=== PATIENT | male | born 1945 | race Two or more races ===

== ENCOUNTER 2017-03-11 07:04 | Emergency (ER) | payer OTHER, MEDICAID ==
[~2017-03-11] VITALS: Ht 180.3 cm; Wt 88.5 kg
[2017-03-11] MEDS ORDERED: SODIUM CHLORIDE 0.9% 1,000 ML IV ONE ×2 (08:35)
[2017-03-11 08:46] LABS: Basophils # (auto) 0 uL; Basophils % (auto) 0.4 % (0.0-2.0); Eosinophils # (auto) 0.1 uL; Eosinophils % (auto) 0.6 % (0.0-7.0); Hematocrit 42.3 % (41.0-53.0); Hemoglobin 14.4 g/dL (13.5-17.5); Lymphocytes # (auto) 0.7 uL; Lymphocytes % (auto) 7.4 % (10.0-50.0); Mean Corpuscular Volume 97.2 fL (80.0-100.0); Monocytes # (auto) 0.6 uL; Monocytes % (auto) 5.9 % (0.0-12.0); Neutrophils # (auto) 8.1 uL; Neutrophils % (auto) 85.7 % (37.0-80.0); Nucleated Red Blood Cells % 0.1 %; Platelet Count (auto) 222 10^3/uL (140-450); Red Blood Cells 4.36 10^6/uL (4.5-5.90); Red Cell Distribution Width 15.6 % (11.8-14.3); White Blood Cell 9.5 10^3/uL (4.4-10.8)
[2017-03-11 08:56] LABS: Albumin 3.6 g/dL (3.4-5.0); Calcium 9.1 mg/dL (8.5-10.1); Potassium 3.7 mmol/L (3.5-5.1)
[2017-03-11 09:00] LABS: Bilirubin, Total 0.7 mg/dL (0.2-1.0); Total Protein 7.3 g/dL (6.4-8.2)
[2017-03-11] MEDS ORDERED: IOHEXOL 300 MG/ML 100ML BOTTLE IJ ONE (09:29)
[2017-03-11] MEDS ORDERED: PROMETHAZINE HCL 25 MG/ML 1ML IV ONE (10:00)
[2017-03-11] MEDS ORDERED: NALBUPHINE HCL 10 MG/1ml INJECTION IV ONE (10:00)
[2017-03-11 11:16] LABS: Urine Bacteria NONE SEEN /hpf (None Seen); Urine Blood Negative /uL (Negative); Urine Specific Gravity 1.032 (1.001-1.035); Urine WBC <1 /hpf (0 - 3)
[2017-03-11 12:48] VITALS: BP 117/71
== END 2017-03-11 12:49 | disposition home or self-care (01) ==
LOC: ER 07:04
DX: K40.90 Unilateral inguinal hernia, without obstruction or gangrene, not specified as recurrent (principal); K56.7 Ileus, unspecified; M19.90 Unspecified osteoarthritis, unspecified site; I10 Essential (primary) hypertension
CPT/HCPCS: 36415; 74178; 80053; 81001; 83605; 83690; 85025; 87040; 96361; 96374; 96375; 99285; J2300; J2550; J7030; Q9967; 93005

== ENCOUNTER 2020-01-10 20:01 | Inpatient (IN) | payer BC, MEDICAID ==
[~2020-01-10] VITALS: Ht 172.7 cm; Wt 98.9 kg
[2020-01-10 22:38] LABS: Basophils # (auto) 0 10 ^3/uL (0-0.2); Basophils % (auto) 0.2 % (0.0-2.0); Eosinophils # (auto) 0 10 ^3/uL (0-0.8); Hemoglobin 17.1 g/dL (13.5-17.5); Lymphocytes # (auto) 0.3 10 ^3/uL (0.4-5.4); Lymphocytes % (auto) 4.6 % (10.0-50.0); Mean Corpuscular Hemoglobin 33.1 pg (28.0-32.0); Mean Corpuscular Hgb Conc. 34.3 g/dL (32.0-36.0); Mean Corpuscular Volume 96.6 fL (80.0-100.0); Monocytes # (auto) 0.3 10 ^3/uL (0-1.3); Monocytes % (auto) 4.6 % (0.0-12.0); Neutrophils # (auto) 5.5 10 ^3/uL (1.6-8.6); Neutrophils % (auto) 90.6 % (37.0-80.0); Nucleated Red Blood Cells % 0.2 %; Platelet Count (auto) 239 10^3/uL (140-450); Red Blood Cells 5.18 10^6/uL (4.5-5.90); Red Cell Distribution Width 14.5 % (11.8-14.3); White Blood Cell 6.1 10^3/uL (4.4-10.8)
[2020-01-10 22:47] LABS: Albumin 3.1 g/dL (3.4-5.0); Anion Gap 10 (5-15); Blood Urea Nitrogen 11 mg/dL (7-18); Calcium 8.6 mg/dL (8.5-10.1); Carbon Dioxide 20 mmol/L (21-32); Chloride 102 mmol/L (98-107); Glucose 136 mg/dL (74-106); Potassium 4.2 mmol/L (3.5-5.1); Sodium 132 mmol/L (136-145)
[2020-01-10 22:52] LABS: Alanine Aminotransferase 40 U/L (16-61); Alkaline Phosphatase 50 U/L (45-117); Aspartate Aminotransferase 64 U/L (15-37); BUN/Creatinine Ratio 12.9; Bilirubin, Total 0.7 mg/dL (0.2-1.0); GFR African American 113 mL/min; GFR Non-African American 94 mL/min; Total Protein 8.1 g/dL (6.4-8.2)
[2020-01-10] MEDS ORDERED: levoFLOXacin 750MG 150 ML IV ONE (23:15)
[2020-01-10] MEDS ORDERED: methylPREDNISolone SOD SUCC 125 MG/2 ML VL IV ONE (23:15)
[2020-01-11] MEDS ORDERED: HYDROcodone-ACET 10/325MG TAB PO ONE
[2020-01-11] MEDS ORDERED: ACETAMINOPHEN 325 MG TAB PO PRN (01:30)
[2020-01-11] MEDS ORDERED: NITROGLYCERIN 0.4 MG SL TAB SL PRN (01:30)
[2020-01-11] MEDS ORDERED: DEXTROSE (50%) 50ML SYRG IV PRN (01:30)
[2020-01-11] MEDS ORDERED: ALBUTEROL SULF HFA 90MCG INH 200DOSE IN PRN (01:30)
[2020-01-11] MEDS ORDERED: MORPHINE SULFATE 4 MG/ML SYR/VIAL IV PRN (01:30)
[2020-01-11] MEDS ORDERED: HYDROcodone-ACET 5/325MG TAB PO PRN (01:30)
[2020-01-11] MEDS ORDERED: DOCUSATE SOD 100 MG CAP PO PRN (01:30)
[2020-01-11] MEDS ORDERED: MORPHINE SULF INJ 2 MG/ML SYRINGE 1ML IV PRN (01:30)
[2020-01-11] MEDS ORDERED: ONDANSETRON HCL 4 MG/2 ML VIAL IV PRN (01:30)
[2020-01-11] MEDS: SODIUM CHLOR 0.9% PF (SALINE LOCK) 10ML VIAL/SYR IV SCH ×3 (05:59→23:20)
[2020-01-11] MEDS: ACCU-CHEK COMFORT CURVE STRIP VI SCH ×4 (06:55→23:21)
[2020-01-11] MEDS: InsuLIN REG 1unit/0.01ml Soln (100units/ml) SC SCH ×3 (07:03→17:30)
[2020-01-11 07:40] LABS: Basophils # (auto) 0 10 ^3/uL (0-0.2); Basophils % (auto) 0.1 % (0.0-2.0); Eosinophils # (auto) 0 10 ^3/uL (0-0.8); Eosinophils % (auto) 0.1 % (0.0-7.0); Hematocrit 48.5 % (41.0-53.0); Hemoglobin 16.3 g/dL (13.5-17.5); Lymphocytes # (auto) 0.2 10 ^3/uL (0.4-5.4); Lymphocytes % (auto) 4.1 % (10.0-50.0); Mean Corpuscular Hemoglobin 32.7 pg (28.0-32.0); Mean Corpuscular Hgb Conc. 33.6 g/dL (32.0-36.0); Mean Corpuscular Volume 97.5 fL (80.0-100.0); Monocytes # (auto) 0.1 10 ^3/uL (0-1.3); Monocytes % (auto) 2.7 % (0.0-12.0); Neutrophils # (auto) 4.3 10 ^3/uL (1.6-8.6); Nucleated Red Blood Cells % 0.1 %; Platelet Count (auto) 225 10^3/uL (140-450); Red Blood Cells 4.97 10^6/uL (4.5-5.90); Red Cell Distribution Width 14.3 % (11.8-14.3); White Blood Cell 4.7 10^3/uL (4.4-10.8)
[2020-01-11 08:05] LABS: Albumin 2.9 g/dL (3.4-5.0); BUN/Creatinine Ratio 16.3; Calcium 8.1 mg/dL (8.5-10.1); Potassium 4.3 mmol/L (3.5-5.1)
[2020-01-11 08:08] LABS: Bilirubin, Total 0.7 mg/dL (0.2-1.0)
[2020-01-11] MEDS: DexAMETHasone SOD PHOS 10MG/1ML VIAL INJ IV SCH (11:45)
[2020-01-11] MEDS: DOXYCYCLINE 100MG/250ML 250 ML IV SCH ×2 (11:46→23:20)
[2020-01-11] MEDS: MULTIPLE VITAMIN TAB PO SCH (11:47)
[2020-01-11] MEDS: ASCORBIC ACID 500 MG TAB PO SCH ×2 (11:48→23:20)
[2020-01-11] MEDS: FAMOTIDINE 20 MG TAB PO SCH ×2 (11:48→23:20)
[2020-01-11] MEDS: CHOLECALCIFEROL (VITD3) 2,000 UNIT CAP PO SCH (11:49)
[2020-01-11] MEDS: ENOXAPARIN SOD 40 MG/0.4 ML SYRINGE SC SCH (11:50)
[2020-01-11] MEDS: BUDESONIDE (INHALATION) 180 MCG IH IN SCH ×2 (12:15→20:30)
[2020-01-11] MEDS ORDERED: IOHEXOL 350 MG/ML 100ML IJ ONE ×2 (15:50→15:54)
[2020-01-11 19:00] VITALS: BP 144/79
[2020-01-11] MEDS: ALBUTEROL SULF HFA 90MCG INH 200DOSE IN SCH (20:30)
[2020-01-11 22:00] VITALS: BP 144/79
[2020-01-12] MEDS: InsuLIN REG 1unit/0.01ml Soln (100units/ml) SC SCH ×5 (00:08→23:11)
[2020-01-12 05:00] VITALS: BP 123/88
[2020-01-12] MEDS: SODIUM CHLOR 0.9% PF (SALINE LOCK) 10ML VIAL/SYR IV SCH ×3 (06:00→22:49)
[2020-01-12] MEDS: ACCU-CHEK COMFORT CURVE STRIP VI SCH ×4 (06:57→22:50)
[2020-01-12 07:14] LABS: Basophils # (auto) 0 10 ^3/uL (0-0.2); Eosinophils # (auto) 0 10 ^3/uL (0-0.8); Hemoglobin 15.7 g/dL (13.5-17.5); Lymphocytes # (auto) 0.5 10 ^3/uL (0.4-5.4); Lymphocytes % (auto) 3.5 % (10.0-50.0); Mean Corpuscular Hemoglobin 33.2 pg (28.0-32.0); Mean Corpuscular Hgb Conc. 34.8 g/dL (32.0-36.0); Mean Corpuscular Volume 95.4 fL (80.0-100.0); Monocytes # (auto) 0.4 10 ^3/uL (0-1.3); Neutrophils # (auto) 12.3 10 ^3/uL (1.6-8.6); Neutrophils % (auto) 93.5 % (37.0-80.0); Nucleated Red Blood Cells % 0.1 %; Platelet Count (auto) 276 10^3/uL (140-450); Red Blood Cells 4.72 10^6/uL (4.5-5.90); Red Cell Distribution Width 14.7 % (11.8-14.3); White Blood Cell 13.2 10^3/uL (4.4-10.8)
[2020-01-12 07:28] LABS: Potassium 4.4 mmol/L (3.5-5.1)
[2020-01-12 07:46] LABS: Albumin 2.5 g/dL (3.4-5.0); BUN/Creatinine Ratio 22.7; Bilirubin, Direct 0.3 mg/dL (0-0.2); Bilirubin, Total 0.7 mg/dL (0.2-1.0); CRP High Sensitivity 5.7 mg/dL (< 0.3); Calcium 8.5 mg/dL (8.5-10.1)
[2020-01-12] MEDS: BUDESONIDE (INHALATION) 180 MCG IH IN SCH ×2 (08:45→22:20)
[2020-01-12] MEDS: ALBUTEROL SULF HFA 90MCG INH 200DOSE IN SCH ×2 (08:45→22:21)
[2020-01-12 09:00] VITALS: BP 141/88
[2020-01-12] MEDS: FAMOTIDINE 20 MG TAB PO SCH ×2 (10:49→22:50)
[2020-01-12] MEDS: MULTIPLE VITAMIN TAB PO SCH (10:49)
[2020-01-12] MEDS: DOXYCYCLINE 100MG/250ML 250 ML IV SCH ×2 (10:49→22:49)
[2020-01-12] MEDS: DexAMETHasone SOD PHOS 10MG/1ML VIAL INJ IV SCH (10:49)
[2020-01-12] MEDS: ENOXAPARIN SOD 40 MG/0.4 ML SYRINGE SC SCH (10:50)
[2020-01-12] MEDS: ASCORBIC ACID 500 MG TAB PO SCH ×2 (10:50→22:50)
[2020-01-12] MEDS: CHOLECALCIFEROL (VITD3) 2,000 UNIT CAP PO SCH (10:50)
[2020-01-12] MEDS ORDERED: REMDESIVIR PER PHARMACY IV SCH (11:30)
[2020-01-12 13:00] VITALS: BP 141/81
[2020-01-12 17:00] VITALS: BP 133/87
[2020-01-12] MEDS ORDERED: REMDESIVIR 200 MG in NS 210ml LOADING DOSE ADULT IV ONE (17:00)
[2020-01-12 22:00] VITALS: BP 148/94
[2020-01-13 05:00] VITALS: BP 150/89
[2020-01-13] MEDS: ACCU-CHEK COMFORT CURVE STRIP VI SCH ×4 (06:45→22:10)
[2020-01-13] MEDS: SODIUM CHLOR 0.9% PF (SALINE LOCK) 10ML VIAL/SYR IV SCH ×3 (06:45→21:38)
[2020-01-13] MEDS: InsuLIN REG 1unit/0.01ml Soln (100units/ml) SC SCH ×4 (06:56→22:17)
[2020-01-13 06:57] LABS: Basophils # (auto) 0 10 ^3/uL (0-0.2); Basophils % (auto) 0.1 % (0.0-2.0); Eosinophils # (auto) 0 10 ^3/uL (0-0.8); Hematocrit 45.6 % (41.0-53.0); Hemoglobin 15.1 g/dL (13.5-17.5); Lymphocytes # (auto) 0.3 10 ^3/uL (0.4-5.4); Lymphocytes % (auto) 2.2 % (10.0-50.0); Mean Corpuscular Hgb Conc. 33.1 g/dL (32.0-36.0); Mean Corpuscular Volume 96.7 fL (80.0-100.0); Monocytes # (auto) 0.5 10 ^3/uL (0-1.3); Monocytes % (auto) 3.5 % (0.0-12.0); Neutrophils # (auto) 14.5 10 ^3/uL (1.6-8.6); Neutrophils % (auto) 94.2 % (37.0-80.0); Platelet Count (auto) 302 10^3/uL (140-450); Red Blood Cells 4.71 10^6/uL (4.5-5.90); Red Cell Distribution Width 14.5 % (11.8-14.3); White Blood Cell 15.4 10^3/uL (4.4-10.8)
[2020-01-13] MEDS: BUDESONIDE (INHALATION) 180 MCG IH IN SCH ×2 (07:22→21:58)
[2020-01-13] MEDS: ALBUTEROL SULF HFA 90MCG INH 200DOSE IN SCH ×3 (07:23→21:58)
[2020-01-13 07:24] LABS: Calcium 8.2 mg/dL (8.5-10.1)
[2020-01-13 07:37] LABS: CRP High Sensitivity 4.63 mg/dL (< 0.3)
[2020-01-13 09:00] VITALS: BP 138/75
[2020-01-13] MEDS: ENOXAPARIN SOD 40 MG/0.4 ML SYRINGE SC SCH (10:00)
[2020-01-13] MEDS: FAMOTIDINE 20 MG TAB PO SCH ×2 (10:11→21:37)
[2020-01-13] MEDS: DOXYCYCLINE 100MG/250ML 250 ML IV SCH ×2 (10:11→21:38)
[2020-01-13] MEDS: MULTIPLE VITAMIN TAB PO SCH (10:13)
[2020-01-13] MEDS: ASCORBIC ACID 500 MG TAB PO SCH ×2 (10:13→21:37)
[2020-01-13] MEDS: CHOLECALCIFEROL (VITD3) 2,000 UNIT CAP PO SCH (10:14)
[2020-01-13] MEDS: DexAMETHasone SOD PHOS 10MG/1ML VIAL INJ IV SCH (10:19)
[2020-01-13 13:00] VITALS: BP 150/91
[2020-01-13 17:00] VITALS: BP 138/95
[2020-01-13] MEDS: REMDESIVIR 100 MG in SODIUM CHL 0.9% 250 ML IV SCH (18:45)
[2020-01-13 20:01] VITALS: BP 145/73
[2020-01-13 22:00] VITALS: BP 141/96
[2020-01-14 05:00] VITALS: BP 157/77
[2020-01-14] MEDS: SODIUM CHLOR 0.9% PF (SALINE LOCK) 10ML VIAL/SYR IV SCH ×3 (06:13→21:21)
[2020-01-14] MEDS: ACCU-CHEK COMFORT CURVE STRIP VI SCH ×4 (06:22→21:22)
[2020-01-14] MEDS: InsuLIN REG 1unit/0.01ml Soln (100units/ml) SC SCH ×4 (06:22→21:53)
[2020-01-14] MEDS: BUDESONIDE (INHALATION) 180 MCG IH IN SCH ×2 (08:17→23:31)
[2020-01-14] MEDS: ALBUTEROL SULF HFA 90MCG INH 200DOSE IN SCH ×2 (08:18→23:31)
[2020-01-14 08:23] LABS: Basophils # (auto) 0 10 ^3/uL (0-0.2); Basophils % (auto) 0.1 % (0.0-2.0); Eosinophils # (auto) 0 10 ^3/uL (0-0.8); Hematocrit 48.3 % (41.0-53.0); Hemoglobin 16.7 g/dL (13.5-17.5); Lymphocytes # (auto) 0.6 10 ^3/uL (0.4-5.4); Lymphocytes % (auto) 3.9 % (10.0-50.0); Mean Corpuscular Hgb Conc. 34.5 g/dL (32.0-36.0); Mean Corpuscular Volume 95.6 fL (80.0-100.0); Monocytes # (auto) 0.8 10 ^3/uL (0-1.3); Monocytes % (auto) 4.9 % (0.0-12.0); Neutrophils # (auto) 14.2 10 ^3/uL (1.6-8.6); Neutrophils % (auto) 91.1 % (37.0-80.0); Nucleated Red Blood Cells % 0.1 %; Platelet Count (auto) 130 10^3/uL (140-450); Red Blood Cells 5.05 10^6/uL (4.5-5.90); Red Cell Distribution Width 14.5 % (11.8-14.3); White Blood Cell 15.6 10^3/uL (4.4-10.8)
[2020-01-14 08:42] LABS: Potassium 3.7 mmol/L (3.5-5.1)
[2020-01-14 09:00] VITALS: BP 125/81
[2020-01-14 09:01] LABS: BUN/Creatinine Ratio 30.2; CRP High Sensitivity 10.8 mg/dL (< 0.3); Calcium 8.3 mg/dL (8.5-10.1)
[2020-01-14] MEDS: DexAMETHasone SOD PHOS 10MG/1ML VIAL INJ IV SCH (10:36)
[2020-01-14] MEDS: CHOLECALCIFEROL (VITD3) 2,000 UNIT CAP PO SCH (10:37)
[2020-01-14] MEDS: DOXYCYCLINE 100MG/250ML 250 ML IV SCH ×2 (10:37→21:22)
[2020-01-14] MEDS: MULTIPLE VITAMIN TAB PO SCH (10:37)
[2020-01-14] MEDS: FAMOTIDINE 20 MG TAB PO SCH ×2 (10:38→21:22)
[2020-01-14] MEDS: ASCORBIC ACID 500 MG TAB PO SCH ×2 (10:38→21:22)
[2020-01-14] MEDS: ENOXAPARIN SOD 40 MG/0.4 ML SYRINGE SC SCH (12:00)
[2020-01-14] MEDS ORDERED: diphenhdrAMINE HCL 50 MG/1 ML VL IV PRN (13:30)
[2020-01-14 17:00] VITALS: BP 140/95
[2020-01-14] MEDS: REMDESIVIR 100 MG in SODIUM CHL 0.9% 250 ML IV SCH (19:30)
[2020-01-14 21:00] VITALS: BP 148/99
[2020-01-15] VITALS (7 sets, daily range): BP systolic 139–165; BP diastolic 69–95
[2020-01-15] MEDS: ALBUTEROL SULF HFA 90MCG INH 200DOSE IN SCH ×2 (06:00→21:07)
[2020-01-15] MEDS: SODIUM CHLOR 0.9% PF (SALINE LOCK) 10ML VIAL/SYR IV SCH ×3 (06:00→22:10)
[2020-01-15] MEDS: ACCU-CHEK COMFORT CURVE STRIP VI SCH ×4 (06:00→22:00)
[2020-01-15] MEDS: InsuLIN REG 1unit/0.01ml Soln (100units/ml) SC SCH ×4 (06:02→22:00)
[2020-01-15 07:53] LABS: Albumin 2.3 g/dL (3.4-5.0); Potassium 3.8 mmol/L (3.5-5.1)
[2020-01-15 07:55] LABS: Hematocrit 45.9 % (41.0-53.0); Hemoglobin 15.7 g/dL (13.5-17.5); White Blood Cell 17.3 10^3/uL (4.4-10.8)
[2020-01-15 07:58] LABS: Mean Corpuscular Hemoglobin 32.2 pg (28.0-32.0); Mean Corpuscular Hgb Conc. 34.2 g/dL (32.0-36.0); Red Blood Cells 4.88 10^6/uL (4.5-5.90); Red Cell Distribution Width 14.6 % (11.8-14.3)
[2020-01-15 08:06] LABS: Basophils % (manual) 0 (0.0-2.0); Blast Cells 0; Eosinophils % (manual) 0 (0-7); Metamyelocytes % 0; Myelocytes % 0; Promyelocytes % 0; Reactive Lymphocytes 0
[2020-01-15 08:11] LABS: BUN/Creatinine Ratio 39.6; Bilirubin, Total 2.3 mg/dL (0.2-1.0); CRP High Sensitivity 13.1 mg/dL (< 0.3); Total Protein 6.2 g/dL (6.4-8.2)
[2020-01-15 08:45] LABS: Band Neutrophils % (manual) 3; Lymphocytes % (manual) 3 (10.0-50.0); Monocytes % (manual) 2 (0-12)
[2020-01-15 09:06] LABS: Platelet Count (auto) 58 10^3/uL (140-450)
[2020-01-15] MEDS: BUDESONIDE (INHALATION) 180 MCG IH IN SCH ×2 (10:00→21:08)
[2020-01-15] MEDS: ASCORBIC ACID 500 MG TAB PO SCH (11:17)
[2020-01-15] MEDS: MULTIPLE VITAMIN TAB PO SCH (11:17)
[2020-01-15] MEDS: DOXYCYCLINE 100MG/250ML 250 ML IV SCH (11:18)
[2020-01-15] MEDS: DexAMETHasone SOD PHOS 10MG/1ML VIAL INJ IV SCH (11:18)
[2020-01-15] MEDS: FAMOTIDINE 20 MG TAB PO SCH (12:00)
[2020-01-15] MEDS: CHOLECALCIFEROL (VITD3) 2,000 UNIT CAP PO SCH (12:00)
[2020-01-15] MEDS ORDERED: ENOXAPARIN SOD 100 MG/1 ML SYRINGE SC ONE (16:00)
[2020-01-15] MEDS: REMDESIVIR 100 MG in SODIUM CHL 0.9% 250 ML IV SCH (17:45)
[2020-01-16] MEDS: FAMOTIDINE 20 MG TAB PO SCH ×3 (00:01→20:56)
[2020-01-16] MEDS: DOXYCYCLINE 100MG/250ML 250 ML IV SCH ×3 (00:01→23:00)
[2020-01-16] MEDS: DexAMETHasone SOD PHOS 10MG/1ML VIAL INJ IV SCH ×3 (00:01→20:55)
[2020-01-16] MEDS: ASCORBIC ACID 500 MG TAB PO SCH ×3 (00:02→20:57)
[2020-01-16 00:48] VITALS: BP 155/82
[2020-01-16 05:00] VITALS: BP 146/79
[2020-01-16] MEDS: InsuLIN REG 1unit/0.01ml Soln (100units/ml) SC SCH ×4 (06:17→21:14)
[2020-01-16] MEDS: ACCU-CHEK COMFORT CURVE STRIP VI SCH ×4 (06:17→20:57)
[2020-01-16] MEDS: SODIUM CHLOR 0.9% PF (SALINE LOCK) 10ML VIAL/SYR IV SCH ×3 (06:17→20:56)
[2020-01-16] MEDS: ALBUTEROL SULF HFA 90MCG INH 200DOSE IN SCH ×3 (07:46→21:06)
[2020-01-16 08:32] LABS: Calcium 8.4 mg/dL (8.5-10.1); Potassium 3.9 mmol/L (3.5-5.1)
[2020-01-16 08:43] LABS: BUN/Creatinine Ratio 43.9; CRP High Sensitivity 12.3 mg/dL (< 0.3); Magnesium 2.6 mg/dL (1.6-2.6)
[2020-01-16 09:00] VITALS: BP 145/96
[2020-01-16 09:40] LABS: Hemoglobin 15.6 g/dL (13.5-17.5)
[2020-01-16 09:42] LABS: Mean Corpuscular Hgb Conc. 33.9 g/dL (32.0-36.0); Mean Corpuscular Volume 94.5 fL (80.0-100.0); Platelet Count (auto) 33 10^3/uL (140-450); Red Blood Cells 4.87 10^6/uL (4.5-5.90); Red Cell Distribution Width 14.9 % (11.8-14.3); White Blood Cell 22.1 10^3/uL (4.4-10.8)
[2020-01-16] MEDS: BUDESONIDE (INHALATION) 180 MCG IH IN SCH ×3 (09:42→21:06)
[2020-01-16 09:48] LABS: Band Neutrophils % (manual) 0; Basophils % (manual) 0 (0.0-2.0); Blast Cells 0; Eosinophils % (manual) 0 (0-7); Metamyelocytes % 0; Promyelocytes % 0; Reactive Lymphocytes 0
[2020-01-16] MEDS ORDERED: ENOXAPARIN SOD 100 MG/1 ML SYRINGE SC SCH (10:00)
[2020-01-16 10:26] LABS: Lymphocytes % (manual) 2 (10.0-50.0); Monocytes % (manual) 2 (0-12); Myelocytes % 1
[2020-01-16] MEDS: CHOLECALCIFEROL (VITD3) 2,000 UNIT CAP PO SCH (10:30)
[2020-01-16] MEDS: MULTIPLE VITAMIN TAB PO SCH (10:30)
[2020-01-16 13:00] VITALS: BP 137/89
[2020-01-16] MEDS ORDERED: FUROSEMIDE 40 MG/4 ML VIAL IV ONE (14:00)
[2020-01-16] MEDS: METOPROLOL TARTRATE 25 MG TAB PO SCH ×2 (16:12→21:40)
[2020-01-16 17:00] VITALS: BP 134/88
[2020-01-16] MEDS: REMDESIVIR 100 MG in SODIUM CHL 0.9% 250 ML IV SCH (17:30)
[2020-01-16 22:00] VITALS: BP 100/58
[2020-01-17 05:23] VITALS: BP 128/84
[2020-01-17] MEDS: SODIUM CHLOR 0.9% PF (SALINE LOCK) 10ML VIAL/SYR IV SCH ×3 (05:30→21:25)
[2020-01-17] MEDS: ALBUTEROL SULF HFA 90MCG INH 200DOSE IN SCH ×2 (06:00→14:00)
[2020-01-17] MEDS: ACCU-CHEK COMFORT CURVE STRIP VI SCH ×4 (06:28→21:26)
[2020-01-17] MEDS: InsuLIN REG 1unit/0.01ml Soln (100units/ml) SC SCH ×4 (06:32→21:39)
[2020-01-17 08:04] LABS: Hemoglobin 14.6 g/dL (13.5-17.5); Platelet Count (auto) 47 10^3/uL (140-450); Red Blood Cells 4.51 10^6/uL (4.5-5.90)
[2020-01-17 08:07] LABS: Hematocrit 42.3 % (41.0-53.0); Mean Corpuscular Hemoglobin 32.3 pg (28.0-32.0); Mean Corpuscular Hgb Conc. 34.4 g/dL (32.0-36.0); Mean Corpuscular Volume 93.6 fL (80.0-100.0); Red Cell Distribution Width 15.1 % (11.8-14.3); White Blood Cell 16.5 10^3/uL (4.4-10.8)
[2020-01-17 08:12] LABS: Calcium 8.3 mg/dL (8.5-10.1); Magnesium 2.8 mg/dL (1.6-2.6)
[2020-01-17 08:13] LABS: Basophils % (manual) 0 (0.0-2.0); Blast Cells 0; Eosinophils % (manual) 0 (0-7); Promyelocytes % 0; Reactive Lymphocytes 0
[2020-01-17 08:20] LABS: BUN/Creatinine Ratio 53.6; CRP High Sensitivity 12.6 mg/dL (< 0.3); Phosphorus 3.4 mg/dL (2.5-4.90)
[2020-01-17 08:45] VITALS: BP 129/88
[2020-01-17] MEDS: BUDESONIDE (INHALATION) 180 MCG IH IN SCH (10:00)
[2020-01-17] MEDS: ASCORBIC ACID 500 MG TAB PO SCH ×2 (10:30→21:26)
[2020-01-17] MEDS: ENOXAPARIN SOD 40 MG/0.4 ML SYRINGE SC SCH (10:30)
[2020-01-17] MEDS: FAMOTIDINE 20 MG TAB PO SCH ×2 (10:30→21:26)
[2020-01-17] MEDS: METOPROLOL TARTRATE 25 MG TAB PO SCH ×2 (10:30→21:26)
[2020-01-17] MEDS: CHOLECALCIFEROL (VITD3) 2,000 UNIT CAP PO SCH (10:30)
[2020-01-17] MEDS: MULTIPLE VITAMIN TAB PO SCH (10:30)
[2020-01-17 12:42] LABS: Band Neutrophils % (manual) 9; Lymphocytes % (manual) 3 (10.0-50.0); Metamyelocytes % 2; Monocytes % (manual) 4 (0-12); Myelocytes % 1
[2020-01-17 12:58] VITALS: BP 127/87
[2020-01-17] MEDS: DexAMETHasone SOD PHOS 10MG/1ML VIAL INJ IV SCH ×2 (15:08→21:25)
[2020-01-17 17:13] VITALS: BP 126/90
[2020-01-17 21:59] VITALS: BP 128/91
[2020-01-18 05:00] VITALS: BP 125/84
[2020-01-18] MEDS: SODIUM CHLOR 0.9% PF (SALINE LOCK) 10ML VIAL/SYR IV SCH ×3 (05:37→22:02)
[2020-01-18] MEDS: ALBUTEROL SULF HFA 90MCG INH 200DOSE IN SCH ×3 (06:00→22:46)
[2020-01-18] MEDS: ACCU-CHEK COMFORT CURVE STRIP VI SCH ×4 (06:20→22:03)
[2020-01-18] MEDS: InsuLIN REG 1unit/0.01ml Soln (100units/ml) SC SCH ×4 (06:23→22:03)
[2020-01-18 09:00] VITALS: BP 131/82
[2020-01-18] MEDS: FAMOTIDINE 20 MG TAB PO SCH ×2 (10:00→22:02)
[2020-01-18] MEDS: BUDESONIDE (INHALATION) 180 MCG IH IN SCH ×2 (10:00→22:45)
[2020-01-18] MEDS: ASCORBIC ACID 500 MG TAB PO SCH ×2 (10:42→22:02)
[2020-01-18] MEDS: DexAMETHasone SOD PHOS 10MG/1ML VIAL INJ IV SCH ×2 (10:42→22:01)
[2020-01-18] MEDS: MULTIPLE VITAMIN TAB PO SCH (10:42)
[2020-01-18] MEDS: METOPROLOL TARTRATE 25 MG TAB PO SCH ×2 (10:44→22:02)
[2020-01-18] MEDS: ENOXAPARIN SOD 40 MG/0.4 ML SYRINGE SC SCH (10:45)
[2020-01-18] MEDS: CHOLECALCIFEROL (VITD3) 2,000 UNIT CAP PO SCH (10:45)
[2020-01-18 13:00] VITALS: BP 129/89
[2020-01-18 15:53] LABS: Hematocrit 42.9 % (41.0-53.0); Hemoglobin 14.7 g/dL (13.5-17.5); Mean Corpuscular Hemoglobin 31.6 pg (28.0-32.0); Mean Corpuscular Hgb Conc. 34.2 g/dL (32.0-36.0); Mean Corpuscular Volume 92.6 fL (80.0-100.0); Platelet Count (auto) 55 10^3/uL (140-450); Red Blood Cells 4.64 10^6/uL (4.5-5.90); Red Cell Distribution Width 15.2 % (11.8-14.3); White Blood Cell 20.4 10^3/uL (4.4-10.8)
[2020-01-18 15:59] LABS: Band Neutrophils % (manual) 0; Basophils % (manual) 0 (0.0-2.0); Blast Cells 0; Eosinophils % (manual) 0 (0-7); Metamyelocytes % 0; Myelocytes % 0; Promyelocytes % 0; Reactive Lymphocytes 0
[2020-01-18 16:13] LABS: Calcium 8.1 mg/dL (8.5-10.1); Potassium 4.3 mmol/L (3.5-5.1)
[2020-01-18 16:17] LABS: BUN/Creatinine Ratio 54.3
[2020-01-18 16:30] LABS: CRP High Sensitivity 6.23 mg/dL (< 0.3)
[2020-01-18 16:50] LABS: Lymphocytes % (manual) 3 (10.0-50.0); Monocytes % (manual) 5 (0-12)
[2020-01-18 17:00] VITALS: BP 128/86
[2020-01-18 22:00] VITALS: BP 133/82
[2020-01-19 05:00] VITALS: BP 122/74
[2020-01-19] MEDS: SODIUM CHLOR 0.9% PF (SALINE LOCK) 10ML VIAL/SYR IV SCH ×3 (05:23→21:35)
[2020-01-19] MEDS: InsuLIN REG 1unit/0.01ml Soln (100units/ml) SC SCH ×4 (06:19→21:33)
[2020-01-19] MEDS: ACCU-CHEK COMFORT CURVE STRIP VI SCH ×4 (06:20→21:33)
[2020-01-19] MEDS: ALBUTEROL SULF HFA 90MCG INH 200DOSE IN SCH ×3 (07:17→19:53)
[2020-01-19] MEDS: BUDESONIDE (INHALATION) 180 MCG IH IN SCH ×2 (07:17→19:53)
[2020-01-19 09:00] VITALS: BP 121/85
[2020-01-19] MEDS: FAMOTIDINE 20 MG TAB PO SCH ×2 (10:12→21:34)
[2020-01-19] MEDS: CHOLECALCIFEROL (VITD3) 2,000 UNIT CAP PO SCH (10:13)
[2020-01-19] MEDS: METOPROLOL TARTRATE 25 MG TAB PO SCH ×2 (10:13→21:34)
[2020-01-19] MEDS: ASCORBIC ACID 500 MG TAB PO SCH ×2 (10:14→21:33)
[2020-01-19] MEDS: MULTIPLE VITAMIN TAB PO SCH (10:14)
[2020-01-19] MEDS: ENOXAPARIN SOD 40 MG/0.4 ML SYRINGE SC SCH (10:14)
[2020-01-19 10:15] LABS: Basophils # (auto) 0 10 ^3/uL (0-0.2); Basophils % (auto) 0.2 % (0.0-2.0); Eosinophils # (auto) 0 10 ^3/uL (0-0.8); Mean Corpuscular Volume 95.3 fL (80.0-100.0); Monocytes # (auto) 0.6 10 ^3/uL (0-1.3); Red Cell Distribution Width 15.1 % (11.8-14.3)
[2020-01-19] MEDS: DexAMETHasone SOD PHOS 10MG/1ML VIAL INJ IV SCH ×2 (10:15→21:35)
[2020-01-19 10:17] LABS: Hematocrit 43.6 % (41.0-53.0); Hemoglobin 14.8 g/dL (13.5-17.5); Lymphocytes # (auto) 0.4 10 ^3/uL (0.4-5.4); Lymphocytes % (auto) 2.6 % (10.0-50.0); Mean Corpuscular Hemoglobin 32.4 pg (28.0-32.0); Monocytes % (auto) 4.2 % (0.0-12.0); Neutrophils # (auto) 14.3 10 ^3/uL (1.6-8.6); Nucleated Red Blood Cells % 0.1 %; Platelet Count (auto) 65 10^3/uL (140-450); Red Blood Cells 4.58 10^6/uL (4.5-5.90); White Blood Cell 15.4 10^3/uL (4.4-10.8)
[2020-01-19 10:34] LABS: BUN/Creatinine Ratio 68.4; Calcium 8.4 mg/dL (8.5-10.1); Magnesium 3.1 mg/dL (1.6-2.6); Potassium 4.5 mmol/L (3.5-5.1)
[2020-01-19 13:00] VITALS: BP 127/86
[2020-01-19] MEDS ORDERED: REMDESIVIR PER PHARMACY 0 ML IV SCH (14:15)
[2020-01-19 17:00] VITALS: BP 131/90
[2020-01-19 22:00] VITALS: BP 127/87
[2020-01-19 22:44] LABS: Potassium 4.5 mmol/L (3.5-5.1)
[2020-01-19 22:51] LABS: Albumin 2.3 g/dL (3.4-5.0); BUN/Creatinine Ratio 62.6; Bilirubin, Total 1.3 mg/dL (0.2-1.0); Calcium 8.3 mg/dL (8.5-10.1); Total Protein 6.9 g/dL (6.4-8.2)
[2020-01-20 05:00] VITALS: BP 130/96
[2020-01-20] MEDS: ACCU-CHEK COMFORT CURVE STRIP VI SCH ×4 (05:50→22:47)
[2020-01-20] MEDS: SODIUM CHLOR 0.9% PF (SALINE LOCK) 10ML VIAL/SYR IV SCH ×3 (05:50→22:48)
[2020-01-20] MEDS: InsuLIN REG 1unit/0.01ml Soln (100units/ml) SC SCH ×4 (05:50→22:44)
[2020-01-20] MEDS: BUDESONIDE (INHALATION) 180 MCG IH IN SCH ×2 (06:28→22:00)
[2020-01-20 08:59] VITALS: BP 139/81
[2020-01-20] MEDS: CHOLECALCIFEROL (VITD3) 2,000 UNIT CAP PO SCH (10:00)
[2020-01-20] MEDS: ENOXAPARIN SOD 40 MG/0.4 ML SYRINGE SC SCH (10:00)
[2020-01-20] MEDS: ASCORBIC ACID 500 MG TAB PO SCH ×2 (10:30→22:47)
[2020-01-20] MEDS: FAMOTIDINE 20 MG TAB PO SCH ×2 (10:30→22:47)
[2020-01-20] MEDS: METOPROLOL TARTRATE 25 MG TAB PO SCH ×2 (10:30→22:48)
[2020-01-20] MEDS: MULTIPLE VITAMIN TAB PO SCH (10:30)
[2020-01-20] MEDS: DexAMETHasone SOD PHOS 10MG/1ML VIAL INJ IV SCH ×2 (10:30→22:49)
[2020-01-20 20:00] VITALS: BP 145/93
[2020-01-20] MEDS: ALBUTEROL SULF HFA 90MCG INH 200DOSE IN SCH (22:00)
[2020-01-21 05:19] VITALS: BP 128/91
[2020-01-21] MEDS: InsuLIN REG 1unit/0.01ml Soln (100units/ml) SC SCH ×4 (05:49→23:09)
[2020-01-21] MEDS: ACCU-CHEK COMFORT CURVE STRIP VI SCH ×4 (05:50→23:11)
[2020-01-21] MEDS: SODIUM CHLOR 0.9% PF (SALINE LOCK) 10ML VIAL/SYR IV SCH ×3 (05:51→23:12)
[2020-01-21] MEDS: ALBUTEROL SULF HFA 90MCG INH 200DOSE IN SCH ×3 (06:00→20:55)
[2020-01-21 09:00] VITALS: BP 135/91
[2020-01-21] MEDS: BUDESONIDE (INHALATION) 180 MCG IH IN SCH ×2 (10:00→20:55)
[2020-01-21 10:06] LABS: Basophils # (auto) 0.1 10 ^3/uL (0-0.2); Basophils % (auto) 0.4 % (0.0-2.0); Eosinophils # (auto) 0 10 ^3/uL (0-0.8); Eosinophils % (auto) 0.1 % (0.0-7.0); Hematocrit 44.2 % (41.0-53.0); Hemoglobin 14.9 g/dL (13.5-17.5); Lymphocytes # (auto) 0.4 10 ^3/uL (0.4-5.4); Lymphocytes % (auto) 2.3 % (10.0-50.0); Mean Corpuscular Hemoglobin 32.3 pg (28.0-32.0); Mean Corpuscular Hgb Conc. 33.6 g/dL (32.0-36.0); Monocytes # (auto) 0.5 10 ^3/uL (0-1.3); Neutrophils # (auto) 15.2 10 ^3/uL (1.6-8.6); Neutrophils % (auto) 94.2 % (37.0-80.0); Nucleated Red Blood Cells % 0.1 %; Platelet Count (auto) 97 10^3/uL (140-450); Red Cell Distribution Width 15.4 % (11.8-14.3); White Blood Cell 16.1 10^3/uL (4.4-10.8)
[2020-01-21] MEDS: DexAMETHasone SOD PHOS 10MG/1ML VIAL INJ IV SCH (10:13)
[2020-01-21] MEDS: METOPROLOL TARTRATE 25 MG TAB PO SCH ×2 (10:16→23:13)
[2020-01-21] MEDS: MULTIPLE VITAMIN TAB PO SCH (10:18)
[2020-01-21] MEDS: FAMOTIDINE 20 MG TAB PO SCH ×2 (10:19→23:11)
[2020-01-21] MEDS: ASCORBIC ACID 500 MG TAB PO SCH ×2 (10:22→23:11)
[2020-01-21] MEDS: CHOLECALCIFEROL (VITD3) 2,000 UNIT CAP PO SCH (10:22)
[2020-01-21] MEDS: ENOXAPARIN SOD 40 MG/0.4 ML SYRINGE SC SCH (10:23)
[2020-01-21 13:00] VITALS: BP 136/92
[2020-01-21] MEDS ORDERED: MORPHINE SULF INJ 2 MG/ML SYRINGE 1ML IV PRN (14:00)
[2020-01-21 22:00] VITALS: BP 136/94
[2020-01-22 05:00] VITALS: BP 134/91
[2020-01-22] MEDS: InsuLIN REG 1unit/0.01ml Soln (100units/ml) SC SCH ×5 (05:39→23:25)
[2020-01-22] MEDS: SODIUM CHLOR 0.9% PF (SALINE LOCK) 10ML VIAL/SYR IV SCH ×3 (05:54→22:09)
[2020-01-22] MEDS: ACCU-CHEK COMFORT CURVE STRIP VI SCH ×4 (05:54→23:25)
[2020-01-22] MEDS: ALBUTEROL SULF HFA 90MCG INH 200DOSE IN SCH ×2 (06:28→21:50)
[2020-01-22] MEDS: BUDESONIDE (INHALATION) 180 MCG IH IN SCH ×2 (06:36→21:50)
[2020-01-22 07:00] LABS: Hematocrit 45.2 % (41.0-53.0); Hemoglobin 15.4 g/dL (13.5-17.5); Mean Corpuscular Hemoglobin 32.4 pg (28.0-32.0); Mean Corpuscular Hgb Conc. 34.1 g/dL (32.0-36.0); Mean Corpuscular Volume 94.9 fL (80.0-100.0); Platelet Count (auto) 109 10^3/uL (140-450); Red Blood Cells 4.76 10^6/uL (4.5-5.90); White Blood Cell 18.9 10^3/uL (4.4-10.8)
[2020-01-22 07:10] LABS: Potassium 4.7 mmol/L (3.5-5.1)
[2020-01-22 07:35] LABS: Basophils % (manual) 0 (0.0-2.0); Blast Cells 0; Eosinophils % (manual) 0 (0-7); Myelocytes % 0; Promyelocytes % 0; Reactive Lymphocytes 0
[2020-01-22 07:37] LABS: Albumin 2.4 g/dL (3.4-5.0); BUN/Creatinine Ratio 61.7; Bilirubin, Total 1.5 mg/dL (0.2-1.0); CRP High Sensitivity 0.69 mg/dL (< 0.3); Calcium 8.5 mg/dL (8.5-10.1); Total Protein 6.9 g/dL (6.4-8.2)
[2020-01-22 08:26] LABS: Band Neutrophils % (manual) 3; Lymphocytes % (manual) 1 (10.0-50.0); Metamyelocytes % 1; Monocytes % (manual) 3 (0-12)
[2020-01-22 09:00] VITALS: BP 120/92
[2020-01-22] MEDS: DexAMETHasone SOD PHOS 10MG/1ML VIAL INJ IV SCH (10:51)
[2020-01-22] MEDS: METOPROLOL TARTRATE 25 MG TAB PO SCH ×2 (10:51→22:09)
[2020-01-22] MEDS: MULTIPLE VITAMIN TAB PO SCH (10:52)
[2020-01-22] MEDS: FAMOTIDINE 20 MG TAB PO SCH ×2 (10:52→22:09)
[2020-01-22] MEDS: ASCORBIC ACID 500 MG TAB PO SCH ×2 (10:52→22:10)
[2020-01-22] MEDS: CHOLECALCIFEROL (VITD3) 2,000 UNIT CAP PO SCH (10:53)
[2020-01-22] MEDS: ENOXAPARIN SOD 40 MG/0.4 ML SYRINGE SC SCH (10:55)
[2020-01-22 11:49] LABS: Magnesium 3.2 mg/dL (1.6-2.6)
[2020-01-22 11:53] LABS: Phosphorus 3.4 mg/dL (2.5-4.90); Pre Albumin 26.1 mg/dL (20.0-40.0)
[2020-01-22] MEDS ORDERED: PPN PER PHARMACY 0 ML IV SCH (12:45)
[2020-01-22 13:00] VITALS: BP 139/89
[2020-01-22 17:00] VITALS: BP 114/84
[2020-01-22] MEDS ORDERED: DEXTROSE (50%) 50ML SYRG IV SCH (18:00)
[2020-01-22] MEDS ORDERED: PPN PER PHARMACY IV NR ×10 (20:00)
[2020-01-22 22:00] VITALS: BP 130/94
[2020-01-23 05:00] VITALS: BP 128/93
[2020-01-23] MEDS: InsuLIN REG 1unit/0.01ml Soln (100units/ml) SC SCH ×3 (05:10→18:22)
[2020-01-23] MEDS: ACCU-CHEK COMFORT CURVE STRIP VI SCH ×3 (05:11→18:20)
[2020-01-23] MEDS: SODIUM CHLOR 0.9% PF (SALINE LOCK) 10ML VIAL/SYR IV SCH ×3 (05:11→20:59)
[2020-01-23 05:30] VITALS: BP 107/81
[2020-01-23 06:14] LABS: Potassium 4.6 mmol/L (3.5-5.1)
[2020-01-23 06:22] LABS: Albumin 2.3 g/dL (3.4-5.0); Bilirubin, Total 1.5 mg/dL (0.2-1.0); Calcium 8.5 mg/dL (8.5-10.1); Magnesium 3.1 mg/dL (1.6-2.6); Phosphorus 2.7 mg/dL (2.5-4.90); Total Protein 6.6 g/dL (6.4-8.2)
[2020-01-23] MEDS: ALBUTEROL SULF HFA 90MCG INH 200DOSE IN SCH ×2 (06:36→19:17)
[2020-01-23] MEDS: DexAMETHasone SOD PHOS 10MG/1ML VIAL INJ IV SCH (10:34)
[2020-01-23] MEDS: MULTIPLE VITAMIN TAB PO SCH (10:35)
[2020-01-23] MEDS: FAMOTIDINE 20 MG TAB PO SCH ×2 (10:35→21:03)
[2020-01-23] MEDS: CHOLECALCIFEROL (VITD3) 2,000 UNIT CAP PO SCH (10:35)
[2020-01-23] MEDS: METOPROLOL TARTRATE 25 MG TAB PO SCH ×2 (10:35→21:02)
[2020-01-23] MEDS: ASCORBIC ACID 500 MG TAB PO SCH ×2 (10:35→21:03)
[2020-01-23] MEDS: ENOXAPARIN SOD 40 MG/0.4 ML SYRINGE SC SCH (10:36)
[2020-01-23] MEDS: BUDESONIDE (INHALATION) 180 MCG IH IN SCH (19:17)
[2020-01-23] MEDS ORDERED: PPN PER PHARMACY IV NR ×10 (20:00)
[2020-01-23] MEDS: MORPHINE SULF INJ 2 MG/ML SYRINGE 1ML IV PRN (21:00)
[2020-01-24] MEDS: InsuLIN REG 1unit/0.01ml Soln (100units/ml) SC SCH ×5 (00:05→23:44)
[2020-01-24] MEDS: ACCU-CHEK COMFORT CURVE STRIP VI SCH ×5 (00:06→23:44)
[2020-01-24] MEDS: SODIUM CHLOR 0.9% PF (SALINE LOCK) 10ML VIAL/SYR IV SCH ×3 (05:56→20:40)
[2020-01-24] MEDS: BUDESONIDE (INHALATION) 180 MCG IH IN SCH ×2 (06:27→19:40)
[2020-01-24] MEDS: ALBUTEROL SULF HFA 90MCG INH 200DOSE IN SCH ×2 (06:27→19:40)
[2020-01-24 09:00] VITALS: BP 148/89
[2020-01-24] MEDS: DexAMETHasone SOD PHOS 10MG/1ML VIAL INJ IV SCH (10:34)
[2020-01-24] MEDS: ASCORBIC ACID 500 MG TAB PO SCH ×2 (10:35→20:41)
[2020-01-24] MEDS: MULTIPLE VITAMIN TAB PO SCH (10:35)
[2020-01-24] MEDS: CHOLECALCIFEROL (VITD3) 2,000 UNIT CAP PO SCH (10:35)
[2020-01-24] MEDS: METOPROLOL TARTRATE 25 MG TAB PO SCH ×2 (10:35→20:40)
[2020-01-24] MEDS: FAMOTIDINE 20 MG TAB PO SCH ×2 (10:35→20:41)
[2020-01-24] MEDS: ENOXAPARIN SOD 40 MG/0.4 ML SYRINGE SC SCH (10:36)
[2020-01-24 12:58] LABS: Albumin 2.1 g/dL (3.4-5.0); Potassium 4.2 mmol/L (3.5-5.1)
[2020-01-24 13:00] VITALS: BP 147/90
[2020-01-24 13:06] LABS: Bilirubin, Total 1.5 mg/dL (0.2-1.0); Magnesium 2.6 mg/dL (1.6-2.6); Phosphorus 2.9 mg/dL (2.5-4.90); Total Protein 6.2 g/dL (6.4-8.2)
[2020-01-24 17:00] VITALS: BP 158/87
[2020-01-24] MEDS ORDERED: PPN PER PHARMACY IV NR ×11 (20:00)
[2020-01-25] MEDS: SODIUM CHLOR 0.9% PF (SALINE LOCK) 10ML VIAL/SYR IV SCH ×3 (05:37→22:40)
[2020-01-25] MEDS: ACCU-CHEK COMFORT CURVE STRIP VI SCH ×3 (05:38→17:30)
[2020-01-25] MEDS: InsuLIN REG 1unit/0.01ml Soln (100units/ml) SC SCH ×3 (05:48→17:32)
[2020-01-25] MEDS: BUDESONIDE (INHALATION) 180 MCG IH IN SCH ×2 (07:10→20:22)
[2020-01-25] MEDS: ALBUTEROL SULF HFA 90MCG INH 200DOSE IN SCH ×3 (07:10→20:22)
[2020-01-25 09:00] VITALS: BP_SYST 117; BP_SYST 129; BP_DIAS 68; BP_DIAS 83
[2020-01-25] MEDS: DexAMETHasone SOD PHOS 10MG/1ML VIAL INJ IV SCH (11:12)
[2020-01-25] MEDS: METOPROLOL TARTRATE 25 MG TAB PO SCH ×2 (11:13→22:40)
[2020-01-25] MEDS: MULTIPLE VITAMIN TAB PO SCH (11:13)
[2020-01-25] MEDS: FAMOTIDINE 20 MG TAB PO SCH ×2 (11:13→22:40)
[2020-01-25] MEDS: ASCORBIC ACID 500 MG TAB PO SCH ×2 (11:14→22:40)
[2020-01-25] MEDS: CHOLECALCIFEROL (VITD3) 2,000 UNIT CAP PO SCH (11:15)
[2020-01-25] MEDS: ENOXAPARIN SOD 40 MG/0.4 ML SYRINGE SC SCH (11:15)
[2020-01-25 13:00] VITALS: BP_SYST 132; BP_SYST 133; BP_DIAS 80; BP_DIAS 83
[2020-01-25 15:15] LABS: Calcium 7.9 mg/dL (8.5-10.1); Magnesium 2.3 mg/dL (1.6-2.6); Potassium 3.9 mmol/L (3.5-5.1)
[2020-01-25 15:23] LABS: BUN/Creatinine Ratio 56.3; Bilirubin, Total 1.7 mg/dL (0.2-1.0); CRP High Sensitivity 1.54 mg/dL (< 0.3); Phosphorus 2.6 mg/dL (2.5-4.90); Total Protein 5.8 g/dL (6.4-8.2)
[2020-01-25] MEDS ORDERED: SODIUM PHOSPHATES 20 MEQ in SODIUM CHL 0.9% 100 ML IV ONE (16:15)
[2020-01-25 17:00] VITALS: BP 143/91
[2020-01-25] MEDS ORDERED: PPN PER PHARMACY IV NR ×11 (20:00)
[2020-01-25 22:00] VITALS: BP 126/85
[2020-01-26] MEDS: ACCU-CHEK COMFORT CURVE STRIP VI SCH ×4 (00:18→18:16)
[2020-01-26] MEDS: InsuLIN REG 1unit/0.01ml Soln (100units/ml) SC SCH ×4 (00:23→18:00)
[2020-01-26 05:00] VITALS: BP 133/73
[2020-01-26] MEDS: ALBUTEROL SULF HFA 90MCG INH 200DOSE IN SCH ×2 (05:59→21:10)
[2020-01-26] MEDS: BUDESONIDE (INHALATION) 180 MCG IH IN SCH ×2 (05:59→21:10)
[2020-01-26] MEDS: SODIUM CHLOR 0.9% PF (SALINE LOCK) 10ML VIAL/SYR IV SCH ×3 (06:07→22:48)
[2020-01-26 07:41] LABS: Potassium 4.2 mmol/L (3.5-5.1)
[2020-01-26 07:57] LABS: Albumin 1.9 g/dL (3.4-5.0); BUN/Creatinine Ratio 53.8; Bilirubin, Total 1.6 mg/dL (0.2-1.0); Magnesium 2.5 mg/dL (1.6-2.6); Phosphorus 2.8 mg/dL (2.5-4.90); Total Protein 5.8 g/dL (6.4-8.2)
[2020-01-26 09:05] VITALS: BP 127/74
[2020-01-26 09:42] LABS: Calcium 7.8 mg/dL (8.5-10.1)
[2020-01-26] MEDS: DexAMETHasone SOD PHOS 10MG/1ML VIAL INJ IV SCH (09:43)
[2020-01-26] MEDS: MULTIPLE VITAMIN TAB PO SCH (09:44)
[2020-01-26] MEDS: FAMOTIDINE 20 MG TAB PO SCH ×2 (09:44→22:49)
[2020-01-26] MEDS: METOPROLOL TARTRATE 25 MG TAB PO SCH ×2 (09:44→22:48)
[2020-01-26] MEDS: ASCORBIC ACID 500 MG TAB PO SCH ×2 (09:44→22:49)
[2020-01-26] MEDS: CHOLECALCIFEROL (VITD3) 2,000 UNIT CAP PO SCH (09:45)
[2020-01-26] MEDS: ENOXAPARIN SOD 40 MG/0.4 ML SYRINGE SC SCH (09:45)
[2020-01-26 13:00] VITALS: BP 132/88
[2020-01-26] MEDS ORDERED: ENOXAPARIN SOD 40 MG/0.4 ML SYRINGE SC ONE (13:15)
[2020-01-26 17:58] VITALS: BP 122/44
[2020-01-26] MEDS ORDERED: PPN PER PHARMACY IV NR ×10 (20:00)
[2020-01-26] MEDS: HYDROcodone-ACET 5/325MG TAB PO PRN (21:00)
[2020-01-26 22:09] LABS: Hematocrit 44.8 % (41.0-53.0); Hemoglobin 14.5 g/dL (13.5-17.5); Mean Corpuscular Hemoglobin 32.3 pg (28.0-32.0); Mean Corpuscular Hgb Conc. 32.3 g/dL (32.0-36.0); Platelet Count (auto) 129 10^3/uL (140-450); Red Blood Cells 4.49 10^6/uL (4.5-5.90); Red Cell Distribution Width 15.6 % (11.8-14.3); White Blood Cell 26.5 10^3/uL (4.4-10.8)
[2020-01-26 22:12] LABS: Basophils % (manual) 0 (0.0-2.0); Blast Cells 0; Eosinophils % (manual) 0 (0-7); Metamyelocytes % 0; Myelocytes % 0; Promyelocytes % 0; Reactive Lymphocytes 0
[2020-01-26 22:17] LABS: INR 1.11 (0.9-1.15); Partial Thromboplastin Time 22.2 sec (23.0-31.2)
[2020-01-26 22:18] VITALS: BP 122/75
[2020-01-26] MEDS: ENOXAPARIN SOD 80 MG/0.8ML SYRINGE SC SCH (22:49)
[2020-01-26 23:32] LABS: Band Neutrophils % (manual) 1; Lymphocytes % (manual) 1 (10.0-50.0); Monocytes % (manual) 2 (0-12)
[2020-01-27] MEDS: InsuLIN REG 1unit/0.01ml Soln (100units/ml) SC SCH ×5 (00:12→23:57)
[2020-01-27] MEDS: ACCU-CHEK COMFORT CURVE STRIP VI SCH ×5 (00:12→23:56)
[2020-01-27] MEDS: MORPHINE SULF INJ 2 MG/ML SYRINGE 1ML IV PRN (03:55)
[2020-01-27 05:00] VITALS: BP 118/74
[2020-01-27] MEDS: SODIUM CHLOR 0.9% PF (SALINE LOCK) 10ML VIAL/SYR IV SCH ×3 (05:54→22:19)
[2020-01-27] MEDS: ALBUTEROL SULF HFA 90MCG INH 200DOSE IN SCH ×2 (06:42→21:30)
[2020-01-27] MEDS: BUDESONIDE (INHALATION) 180 MCG IH IN SCH ×2 (06:42→21:30)
[2020-01-27 07:07] LABS: Hematocrit 39.2 % (41.0-53.0); Hemoglobin 13.4 g/dL (13.5-17.5); Mean Corpuscular Hemoglobin 32.9 pg (28.0-32.0); Mean Corpuscular Hgb Conc. 34.1 g/dL (32.0-36.0); Mean Corpuscular Volume 96.5 fL (80.0-100.0); Platelet Count (auto) 103 10^3/uL (140-450); Red Blood Cells 4.06 10^6/uL (4.5-5.90); Red Cell Distribution Width 15.1 % (11.8-14.3); White Blood Cell 25.8 10^3/uL (4.4-10.8)
[2020-01-27 07:20] LABS: Potassium 3.4 mmol/L (3.5-5.1)
[2020-01-27 07:24] LABS: Band Neutrophils % (manual) 0; Basophils % (manual) 0 (0.0-2.0); Blast Cells 0; Eosinophils % (manual) 0 (0-7); Myelocytes % 0; Promyelocytes % 0; Reactive Lymphocytes 0
[2020-01-27 07:56] LABS: Albumin 1.8 g/dL (3.4-5.0); BUN/Creatinine Ratio 57.3; Bilirubin, Total 1.3 mg/dL (0.2-1.0); CRP High Sensitivity 1.32 mg/dL (< 0.3); Calcium 7.2 mg/dL (8.5-10.1); Magnesium 2.4 mg/dL (1.6-2.6); Phosphorus 2.4 mg/dL (2.5-4.90); Total Protein 5.6 g/dL (6.4-8.2)
[2020-01-27 08:51] LABS: Lymphocytes % (manual) 1 (10.0-50.0); Metamyelocytes % 1; Monocytes % (manual) 5 (0-12)
[2020-01-27 09:00] VITALS: BP 153/90
[2020-01-27] MEDS: DexAMETHasone SOD PHOS 10MG/1ML VIAL INJ IV SCH (10:04)
[2020-01-27] MEDS: ENOXAPARIN SOD 80 MG/0.8ML SYRINGE SC SCH ×2 (10:04→22:19)
[2020-01-27] MEDS: MULTIPLE VITAMIN TAB PO SCH (10:06)
[2020-01-27] MEDS: FAMOTIDINE 20 MG TAB PO SCH ×2 (10:06→22:19)
[2020-01-27] MEDS: METOPROLOL TARTRATE 25 MG TAB PO SCH ×2 (10:07→22:30)
[2020-01-27] MEDS: CHOLECALCIFEROL (VITD3) 2,000 UNIT CAP PO SCH (10:07)
[2020-01-27] MEDS: ASCORBIC ACID 500 MG TAB PO SCH ×2 (10:07→22:19)
[2020-01-27] MEDS ORDERED: POTASSIUM PHOSPHATE 22 MEQ in SODIUM CHL 0.9% 100 ML IV ONE (10:45)
[2020-01-27 13:00] VITALS: BP 139/89
[2020-01-27 17:00] VITALS: BP 133/86
[2020-01-27] MEDS ORDERED: PPN PER PHARMACY IV NR ×11 (20:00)
[2020-01-27] MEDS: HYDROcodone-ACET 5/325MG TAB PO PRN (20:16)
[2020-01-27 22:00] VITALS: BP 99/41
[2020-01-27] MEDS ORDERED: POTASSIUM EFFERVESENT TAB 25 MEQ PO ONE (22:30)
[2020-01-28 05:00] VITALS: BP 109/70
[2020-01-28] MEDS: ACCU-CHEK COMFORT CURVE STRIP VI SCH ×3 (05:48→18:00)
[2020-01-28] MEDS: SODIUM CHLOR 0.9% PF (SALINE LOCK) 10ML VIAL/SYR IV SCH ×3 (05:48→21:37)
[2020-01-28] MEDS: InsuLIN REG 1unit/0.01ml Soln (100units/ml) SC SCH ×3 (05:51→18:31)
[2020-01-28] MEDS: BUDESONIDE (INHALATION) 180 MCG IH IN SCH ×2 (05:59→18:33)
[2020-01-28] MEDS: ALBUTEROL SULF HFA 90MCG INH 200DOSE IN SCH ×2 (05:59→18:33)
[2020-01-28 09:00] VITALS: BP 118/64
[2020-01-28] MEDS: DexAMETHasone SOD PHOS 10MG/1ML VIAL INJ IV SCH (09:26)
[2020-01-28] MEDS: ENOXAPARIN SOD 80 MG/0.8ML SYRINGE SC SCH ×2 (09:27→21:41)
[2020-01-28] MEDS: MULTIPLE VITAMIN TAB PO SCH (09:27)
[2020-01-28] MEDS: METOPROLOL TARTRATE 25 MG TAB PO SCH ×2 (09:27→21:40)
[2020-01-28] MEDS: FAMOTIDINE 20 MG TAB PO SCH ×2 (09:28→21:41)
[2020-01-28] MEDS: SODIUM CHLORIDE 0.9% 1,000 ML IV SCH ×2 (09:28)
[2020-01-28 11:26] LABS: Hematocrit 34.3 % (41.0-53.0); Mean Corpuscular Volume 94.2 fL (80.0-100.0); Platelet Count (auto) 111 10^3/uL (140-450); Red Blood Cells 3.64 10^6/uL (4.5-5.90)
[2020-01-28 11:37] LABS: White Blood Cell 32.7 10^3/uL (4.4-10.8)
[2020-01-28 11:38] LABS: Basophils % (manual) 0 (0.0-2.0); Blast Cells 0; Eosinophils % (manual) 0 (0-7); Myelocytes % 0; Potassium 4.2 mmol/L (3.5-5.1); Promyelocytes % 0; Reactive Lymphocytes 0
[2020-01-28 11:50] LABS: Albumin 1.8 g/dL (3.4-5.0); BUN/Creatinine Ratio 58.1; Bilirubin, Total 1.9 mg/dL (0.2-1.0); Calcium 7.6 mg/dL (8.5-10.1); Magnesium 2.4 mg/dL (1.6-2.6); Phosphorus 2.4 mg/dL (2.5-4.90); Total Protein 5.4 g/dL (6.4-8.2)
[2020-01-28 13:00] VITALS: BP 123/83
[2020-01-28 13:30] LABS: Band Neutrophils % (manual) 3; Lymphocytes % (manual) 1 (10.0-50.0); Metamyelocytes % 1; Monocytes % (manual) 4 (0-12)
[2020-01-28] MEDS ORDERED: SODIUM PHOSP 20MEQ(15MMOL) IN NS 100 ML IV ONE (14:15)
[2020-01-28] MEDS ORDERED: FUROSEMIDE 40 MG/4 ML VIAL IV ONE (14:45)
[2020-01-28 17:00] VITALS: BP 136/96
[2020-01-28] MEDS ORDERED: TPN PER PHARMACY IV NR ×10 (20:00)
[2020-01-28 20:03] LABS: Hemoglobin 12.5 g/dL (13.5-17.5); Mean Corpuscular Volume 94.7 fL (80.0-100.0)
[2020-01-28 20:05] LABS: Hematocrit 36.3 % (41.0-53.0); Mean Corpuscular Hemoglobin 32.6 pg (28.0-32.0); Mean Corpuscular Hgb Conc. 34.4 g/dL (32.0-36.0); Platelet Count (auto) 120 10^3/uL (140-450); Red Blood Cells 3.83 10^6/uL (4.5-5.90); Red Cell Distribution Width 15.1 % (11.8-14.3)
[2020-01-28 20:19] LABS: Basophils % (manual) 0 (0.0-2.0); Blast Cells 0; Eosinophils % (manual) 0 (0-7); Metamyelocytes % 0; Myelocytes % 0; Promyelocytes % 0; Reactive Lymphocytes 0
[2020-01-28 20:30] LABS: Band Neutrophils % (manual) 2; Lymphocytes % (manual) 3 (10.0-50.0); Monocytes % (manual) 3 (0-12)
[2020-01-28 23:58] VITALS: BP 121/68
[2020-01-29] VITALS (57 sets, daily range): BP systolic 72–149; BP diastolic 40–87
[2020-01-29] MEDS: ACCU-CHEK COMFORT CURVE STRIP VI SCH ×5 (00:07→23:07)
[2020-01-29] MEDS: InsuLIN REG 1unit/0.01ml Soln (100units/ml) SC SCH ×5 (00:09→23:11)
[2020-01-29] MEDS: SODIUM CHLOR 0.9% PF (SALINE LOCK) 10ML VIAL/SYR IV SCH ×3 (05:42→22:26)
[2020-01-29 07:40] LABS: Hemoglobin 11.4 g/dL (13.5-17.5); Mean Corpuscular Hemoglobin 32.1 pg (28.0-32.0); Red Cell Distribution Width 15.5 % (11.8-14.3)
[2020-01-29 07:42] LABS: Hematocrit 33.7 % (41.0-53.0); Mean Corpuscular Hgb Conc. 33.7 g/dL (32.0-36.0); Mean Corpuscular Volume 95.3 fL (80.0-100.0); Platelet Count (auto) 115 10^3/uL (140-450); Red Blood Cells 3.54 10^6/uL (4.5-5.90)
[2020-01-29 07:49] LABS: White Blood Cell 31.5 10^3/uL (4.4-10.8)
[2020-01-29 07:50] LABS: Band Neutrophils % (manual) 0; Basophils % (manual) 0 (0.0-2.0); Blast Cells 0; Eosinophils % (manual) 0 (0-7); Lymphocytes % (manual) 0 (10.0-50.0); Metamyelocytes % 0; Myelocytes % 0; Promyelocytes % 0; Reactive Lymphocytes 0
[2020-01-29 08:22] LABS: Potassium 3.5 mmol/L (3.5-5.1)
[2020-01-29 08:30] LABS: BUN/Creatinine Ratio 63.3
[2020-01-29] MEDS ORDERED: ETOMIDATE (2MG/ML) 20ML VIAL IV ONE (08:44)
[2020-01-29] MEDS ORDERED: SUCCINYLCHOLINE CHLORIDE 20 MG/ML 10ML VIAL IV ONE (08:44)
[2020-01-29 09:14] LABS: Magnesium 2.2 mg/dL (1.6-2.6); Phosphorus 4.2 mg/dL (2.5-4.90)
[2020-01-29] MEDS ORDERED: MIDAZOLAM DRIP 50 mg/50mL 50 ML IV ONE ×2 (09:18→12:45)
[2020-01-29 09:20] LABS: Monocytes % (manual) 2 (0-12)
[2020-01-29] MEDS ORDERED: NOREPINEPHRINE 8 MG/250ML KIT 250 ML IV ONE ×2 (09:23→11:27)
[2020-01-29] MEDS ORDERED: AMIODARONE 450mg/250ml AE 250 ML IV ONE ×2 (09:39→11:27)
[2020-01-29] MEDS ORDERED: AMIODARONE HCL (50 MG/ ML) 3 ML VIAL IV ONE (09:41)
[2020-01-29] MEDS ORDERED: PROPOFOL 100 ML IV ONE (09:53)
[2020-01-29] MEDS ORDERED: PHENYLEPHRINE IV 250 ML IV ONE ×2 (09:58→11:26)
[2020-01-29] MEDS ORDERED: VANCOMYCIN PER PHARMACY 0 MG IV SCH (10:00)
[2020-01-29] MEDS ORDERED: VANCOMYCIN 1GM/250ML 250 ML IV ONE (10:00)
[2020-01-29] MEDS ORDERED: MEROPENEM 1GM IVPB 100 ML IV SCH (10:00)
[2020-01-29] MEDS ORDERED: FUROSEMIDE 40 MG/4 ML VIAL IV SCH (10:00)
[2020-01-29] MEDS ORDERED: metroNIDAZOLE 500MG/100ML 100 ML IV SCH (10:00)
[2020-01-29] MEDS: AMIODARONE 450mg/250ml AE 250 ML IV SCH ×4 (10:30→18:07)
[2020-01-29] MEDS: MULTIPLE VITAMIN TAB PO SCH (10:30)
[2020-01-29] MEDS: FAMOTIDINE 20 MG TAB PO SCH ×2 (10:30→22:47)
[2020-01-29] MEDS: METOPROLOL TARTRATE 25 MG TAB PO SCH ×2 (10:30→21:20)
[2020-01-29] MEDS: NOREPINEPHRINE 8 MG/250ML KIT 250 ML IV SCH ×3 (10:30→20:16)
[2020-01-29] MEDS: MIDAZOLAM DRIP 50 mg/50mL 50 ML IV SCH ×3 (10:30→18:15)
[2020-01-29] MEDS: ENOXAPARIN SOD 80 MG/0.8ML SYRINGE SC SCH ×2 (10:30→22:47)
[2020-01-29] MEDS: PROPOFOL 100 ML IV SCH ×2 (10:30→18:14)
[2020-01-29] MEDS: PHENYLEPHRINE IV 250 ML IV SCH ×5 (10:30→21:40)
[2020-01-29] MEDS ORDERED: ROCURONIUM 10MG/ML 10ML VIAL IV ONE ×2 (11:30→11:32)
[2020-01-29] MEDS ORDERED: VASOPRESSIN 20 UNIT/ML ONE (12:05)
[2020-01-29] MEDS: VASOPRESSIN 50 UNITS in D5W 5% 247.5 ML IV SCH (12:30)
[2020-01-29] MEDS ORDERED: VASOPRESSIN 50 UNITS in D5W 5% 247.5 ML IV SCH (13:15)
[2020-01-29] MEDS ORDERED: fentaNYL Drip 2500mCg/250mlNS 250 ML IV SCH (13:15)
[2020-01-29] MEDS: fentaNYL Drip 2500mCg/250mlNS 250 ML IV SCH ×2 (13:45→20:17)
[2020-01-29] MEDS ORDERED: MIDAZOLAM DRIP 50 mg/50mL 50 ML IV SCH (13:45)
[2020-01-29 14:42] LABS: White Blood Cell 37.1 10^3/uL (4.4-10.8)
[2020-01-29] MEDS: metroNIDAZOLE 500MG/100ML 100 ML IV SCH ×2 (14:54→22:47)
[2020-01-29] MEDS: DexAMETHasone SOD PHOS 10MG/1ML VIAL INJ IV SCH (14:54)
[2020-01-29] MEDS: VANCOMYCIN 1GM/250ML 250 ML IV SCH (17:08)
[2020-01-29] MEDS: MEROPENEM 1GM IVPB 100 ML IV SCH (18:14)
[2020-01-29] MEDS ORDERED: SODIUM BICARBONATE 8.4 % INJ 50ML VIAL IV ONE ×3 (19:45→22:37)
[2020-01-29] MEDS ORDERED: TPN PER PHARMACY IV NR ×10 (20:00)
[2020-01-29] MEDS ORDERED: PPN PER PHARMACY IV NR ×10 (20:00)
[2020-01-29] MEDS ORDERED: SODIUM BICARBONATE 50ML VIAL 100 ML in SOD CHL 0.45% 1,000 ML IV SCH (22:30)
[2020-01-29] MEDS ORDERED: SODIUM CHLORIDE 0.9% 1,000 ML IV SCH (22:30)
[2020-01-29] MEDS ORDERED: SODIUM BICARBONATE 8.4% INJ 50ML SYRINGE ONE (22:37)
[2020-01-30] VITALS (65 sets, daily range): BP systolic 40–141; BP diastolic 10–70
[2020-01-30] MEDS: PHENYLEPHRINE IV 250 ML IV SCH ×3 (00:32→10:49)
[2020-01-30] MEDS: MIDAZOLAM DRIP 50 mg/50mL 50 ML IV SCH (00:33)
[2020-01-30] MEDS ORDERED: VASOPRESSIN 20 UNIT/ML ONE (00:35)
[2020-01-30] MEDS: NOREPINEPHRINE 8 MG/250ML KIT 250 ML IV SCH ×4 (00:50→15:29)
[2020-01-30] MEDS: VASOPRESSIN 50 UNITS in D5W 5% 247.5 ML IV SCH (01:33)
[2020-01-30] MEDS: MEROPENEM 1GM IVPB 100 ML IV SCH (02:00)
[2020-01-30] MEDS: ACCU-CHEK COMFORT CURVE STRIP VI SCH ×2 (05:59→12:00)
[2020-01-30] MEDS: SODIUM CHLOR 0.9% PF (SALINE LOCK) 10ML VIAL/SYR IV SCH ×2 (05:59→14:22)
[2020-01-30 06:23] LABS: Red Cell Distribution Width 16.1 % (11.8-14.3)
[2020-01-30 06:29] LABS: Hematocrit 19.6 % (41.0-53.0); Mean Corpuscular Hemoglobin 34.1 pg (28.0-32.0); Mean Corpuscular Hgb Conc. 32.8 g/dL (32.0-36.0); Platelet Count (auto) 53 10^3/uL (140-450); Red Blood Cells 1.88 10^6/uL (4.5-5.90); White Blood Cell 13.3 10^3/uL (4.4-10.8)
[2020-01-30 06:32] LABS: BUN/Creatinine Ratio 28.8
[2020-01-30] MEDS: InsuLIN REG 1unit/0.01ml Soln (100units/ml) SC SCH ×2 (06:33→12:00)
[2020-01-30 06:35] LABS: Calcium 5.9 mg/dL (8.5-10.1); Potassium 6.7 mmol/L (3.5-5.1)
[2020-01-30] MEDS: metroNIDAZOLE 500MG/100ML 100 ML IV SCH ×2 (06:35→14:00)
[2020-01-30] MEDS ORDERED: SODIUM BICARBONATE 8.4 % INJ 50ML VIAL IV ONE ×2 (06:45→09:00)
[2020-01-30] MEDS ORDERED: InsuLIN REG 1unit/0.01ml Soln (100units/ml) IV ONE ×2 (06:45→13:15)
[2020-01-30] MEDS ORDERED: DEXTROSE (50%) 50ML SYRG IV ONE ×2 (06:45→13:15)
[2020-01-30] MEDS ORDERED: CALCIUM GLUC 4.65meq/50ml D5AE 50 ML IV ONE (06:45)
[2020-01-30 07:41] LABS: Hemoglobin 6.4 g/dL (13.5-17.5)
[2020-01-30 07:43] LABS: Basophils % (manual) 0 (0.0-2.0); Blast Cells 0; Eosinophils % (manual) 0 (0-7); Monocytes % (manual) 0 (0-12); Promyelocytes % 0; Reactive Lymphocytes 0
[2020-01-30] MEDS: AMIODARONE 450mg/250ml AE 250 ML IV SCH (08:04)
[2020-01-30] MEDS: fentaNYL Drip 2500mCg/250mlNS 250 ML IV SCH (08:41)
[2020-01-30] MEDS: METOPROLOL TARTRATE 25 MG TAB PO SCH (08:42)
[2020-01-30] MEDS: VANCOMYCIN 1GM/250ML 250 ML IV SCH (08:42)
[2020-01-30] MEDS: DexAMETHasone SOD PHOS 10MG/1ML VIAL INJ IV SCH (08:42)
[2020-01-30] MEDS: FAMOTIDINE 20 MG TAB PO SCH (08:43)
[2020-01-30] MEDS: MULTIPLE VITAMIN TAB PO SCH (08:43)
[2020-01-30] MEDS: ENOXAPARIN SOD 80 MG/0.8ML SYRINGE SC SCH (08:43)
[2020-01-30] MEDS: SODIUM BICARBONATE 8.4 % INJ 50ML VIAL IV SCH ×4 (09:02→14:00)
[2020-01-30] MEDS ORDERED: PANTOPRAZOLE 40 MG/10 ML VIAL INJ IV SCH (10:15)
[2020-01-30] MEDS ORDERED: SODIUM BICARBONATE 50ML VIAL 150 ML in D5W 5% 1,000 ML IV SCH (10:15)
[2020-01-30 10:19] LABS: Magnesium 2.2 mg/dL (1.6-2.6)
[2020-01-30 10:32] LABS: Albumin 0.9 g/dL (3.4-5.0); Phosphorus 12.1 mg/dL (2.5-4.90)
[2020-01-30] MEDS ORDERED: SODIUM BICARBONATE 8.4% INJ 50ML SYRINGE ONE (11:00)
[2020-01-30] MEDS ORDERED: HEPARIN 1,000 UNITS/ml 1ML VIAL ONE (11:09)
[2020-01-30] MEDS ORDERED: SODIUM CHL 0.9% 1000 ML BAG XX ONE (11:15)
[2020-01-30 11:16] LABS: Hematocrit 22.7 % (41.0-53.0); Mean Corpuscular Hemoglobin 35.5 pg (28.0-32.0); Mean Corpuscular Hgb Conc. 29.1 g/dL (32.0-36.0); Mean Corpuscular Volume 122.2 fL (80.0-100.0); Platelet Count (auto) 49 10^3/uL (140-450); Red Blood Cells 1.85 10^6/uL (4.5-5.90); Red Cell Distribution Width 17.2 % (11.8-14.3); White Blood Cell 11.7 10^3/uL (4.4-10.8)
[2020-01-30] MEDS ORDERED: EPINEPHrine HCL 250 ML IV ONE (11:17)
[2020-01-30 11:35] LABS: Anion Gap 25 (5-15); Blood Urea Nitrogen 63 mg/dL (7-18); Carbon Dioxide 11 mmol/L (21-32); Chloride 96 mmol/L (98-107); Glucose 305 mg/dL (74-106); Sodium 132 mmol/L (136-145)
[2020-01-30 11:41] LABS: Band Neutrophils % (manual) 17; Lymphocytes % (manual) 3 (10.0-50.0); Metamyelocytes % 7; Myelocytes % 4
[2020-01-30 11:56] LABS: Hemoglobin 6.6 g/dL (13.5-17.5)
[2020-01-30 12:02] LABS: Alanine Aminotransferase 11258 U/L (16-61); Alkaline Phosphatase 194 U/L (45-117); BUN/Creatinine Ratio 26.9; Bilirubin, Total 2.3 mg/dL (0.2-1.0); GFR African American 35 mL/min; GFR Non-African American 29 mL/min; Total Protein 2.6 g/dL (6.4-8.2)
[2020-01-30] MEDS: SODIUM ZIRCONIUM CYCL 10 GM PAK PO SCH ×2 (12:08→14:24)
[2020-01-30 12:13] LABS: Aspartate Aminotransferase > 20000 U/L (15-37)
[2020-01-30 12:14] LABS: Albumin 0.7 g/dL (3.4-5.0); Potassium 7.4 mmol/L (3.5-5.1)
[2020-01-30 14:13] LABS: Basophils % (manual) 0 (0.0-2.0); Blast Cells 0; Eosinophils % (manual) 0 (0-7); Promyelocytes % 0; Reactive Lymphocytes 0
[2020-01-30 14:17] LABS: Band Neutrophils % (manual) 36; Lymphocytes % (manual) 6 (10.0-50.0); Metamyelocytes % 5; Monocytes % (manual) 1 (0-12); Myelocytes % 5
[2020-01-30] MEDS ORDERED: EPINEPHrine HCL 250 ML IV SCH (14:30)
[2020-01-30] MEDS ORDERED: MEROPENEM 1GM IVPB 100 ML IV SCH (16:00)
[2020-01-30] MEDS ORDERED: GENTAMICIN SULFATE IV ONE (17:00)
[2020-01-30] MEDS ORDERED: D5W 5% IV ONE (17:00)
[2020-01-30] MEDS ORDERED: PPN PER PHARMACY IV NR ×9 (20:00)
[2020-01-30] MEDS ORDERED: CALCIUM CHLOR(10%) 100MG/ML 10ML SYRINGE IV ONE (22:51)
[2020-01-30] MEDS ORDERED: D5W 5% 100 ML BAG IV ONE (22:51)
[2020-01-30] MEDS ORDERED: EPINEPHrine HCL 1 MG/10 ML SYRG IV ONE ×2 (22:51)
[2020-01-30] MEDS ORDERED: SODIUM BICARBONATE 8.4% INJ 50ML SYRINGE IV ONE (22:51)
[2020-01-30] MEDS ORDERED: AMIODARONE HCL (50 MG/ ML) 3 ML VIAL IV ONE (22:51)
== END 2020-01-30 22:52 | DRG 871 ==
LOC: ER 20:01 → EDBD 20:01 → TELE 20:02 → TELE-EAST 01-11 18:50 → TELE-E-ADS 01-15 21:56 → TELE-EAST 01-15 22:12 → TELE-E-ADS 01-15 22:33 → ICU WEST 01-29 10:27
PROVIDERS: ADMIT Nurse Practitioner Family; ATTEND Hospitalist
PROC: XW033E5 Introduction of Remdesivir Anti-infective into Peripheral Vein, Percutaneous Approach, New Technology Group 5 (ICD-10-PCS; 2020-01-12)
PROC: XW13325 Transfusion of Convalescent Plasma (Nonautologous) into Peripheral Vein, Percutaneous Approach, New Technology Group 5 (ICD-10-PCS; principal; 2020-01-15)
PROC: 5A09457 Assistance with Respiratory Ventilation, 24-96 Consecutive Hours, Continuous Positive Airway Pressure (ICD-10-PCS; 2020-01-16)
PROC: 5A1945Z Respiratory Ventilation, 24-96 Consecutive Hours (ICD-10-PCS; 2020-01-29)
PROC: 04HY32Z Insertion of Monitoring Device into Lower Artery, Percutaneous Approach (ICD-10-PCS; 2020-01-29)
PROC: 4A133B1 Monitoring of Arterial Pressure, Peripheral, Percutaneous Approach (ICD-10-PCS; 2020-01-29)
PROC: 4A133J1 Monitoring of Arterial Pulse, Peripheral, Percutaneous Approach (ICD-10-PCS; 2020-01-29)
PROC: 0BH17EZ Insertion of Endotracheal Airway into Trachea, Via Natural or Artificial Opening (ICD-10-PCS; 2020-01-29)
PROC: 5A12012 Performance of Cardiac Output, Single, Manual (ICD-10-PCS; 2020-01-30)
PROC: 02HV33Z Insertion of Infusion Device into Superior Vena Cava, Percutaneous Approach (ICD-10-PCS; 2020-01-30)
PROC: B548ZZA Ultrasonography of Superior Vena Cava, Guidance (ICD-10-PCS; 2020-01-30)
DX: A41.89 Other specified sepsis (principal); U07.1 COVID-19; J12.89 Other viral pneumonia; J96.01 Acute respiratory failure with hypoxia; K72.00 Acute and subacute hepatic failure without coma; R65.21 Severe sepsis with septic shock; I82.402 Acute embolism and thrombosis of unspecified deep veins of left lower extremity; N17.9 Acute kidney failure, unspecified; J98.11 Atelectasis; I10 Essential (primary) hypertension; E11.9 Type 2 diabetes mellitus without complications; D69.59 Other secondary thrombocytopenia; E87.5 Hyperkalemia; E87.6 Hypokalemia; E87.70 Fluid overload, unspecified; I46.9 Cardiac arrest, cause unspecified; M06.9 Rheumatoid arthritis, unspecified; D64.9 Anemia, unspecified; L89.312 Pressure ulcer of right buttock, stage 2
CPT/HCPCS: 36415; 36600; 71045; 71250; 71275; 76604; 80048; 80053; 80076; 82040; 82728; 82805; 82962; 83036; 83615; 83735; 83880; 84100; 84478; 84484; 85007; 85025; 85027; 85379; 85610; 85730; 86141; 86850; 86900; 86901; 86920; 87040; 87426; 87804; 92950; 93005; 93306; 93970; 94002; 94003; 94640; 94660; 96365; 96366; 96375; 97110; C9113; G0378; J0171; J0330; J0610; J1100; J1815; J1956; J2185; J2250; J2704; J3490; J7060; J7131